=== PATIENT | female | born 1935 | race Caucasian/White ===

== ENCOUNTER 2018-05-16 11:09 | Emergency (ER) | payer MEDICARE, BC ==
[2018-05-16] MEDS: SODIUM CHLORIDE 0.9% FLUSH 10 ML SOL IV PRN (11:40)
[2018-05-16 11:49] LABS: BASOPHILS % (AUTO) 0 % (0-3); EOSINOPHILS % (AUTO) 0 % (0-9); HEMATOCRIT 37 % (35-47); HEMOGLOBIN 12.7 gm/dl (12.0-15.5); LYMPHOCYTES % (AUTO) 5.1 % (10-50); MEAN CORPUSCULAR HEMOGLOBIN 31.1 pg (27.0-32.0); MEAN CORPUSCULAR HGB CONC 34.3 gm/dl (32.0-36.0); MEAN CORPUSCULAR VOLUME 91 fL (81-99); MONOCYTES % (AUTO) 7.3 % (0-12); NEUTROPHILS % (AUTO) 87.2 % (37-80)
[2018-05-16 12:04] LABS: CARBON DIOXIDE 27.9 mEq/L (21-32); CREATININE 1.19 mg/dl (0.60-1.00); POTASSIUM 3.4 mMol/L (3.5-5.1)
[2018-05-16 12:58] VITALS: TEMP 98
[2018-05-16] MEDS: SODIUM CHLORIDE 0.9% 500 ML 500 ML IV ONE (13:04)
[2018-05-16 13:50] LABS: COLOR,URINE YELLOW
[2018-05-16 13:51] LABS: APPEARANCE,URINE CLOUDY; BILIRUBIN,URINE NEGATIVE (NEGATIVE); GLUCOSE, URINE (UA) NEGATIVE (NEGATIVE); KETONES,URINE NEGATIVE (NEGATIVE); LEUKOCYTE ESTERASE ,URINE TRACE (NEGATIVE); NITRATE,URINE NEGATIVE (NEGATIVE); OCCULT BLOOD,URINE 2+ (NEG-TRACE); UROBILINOGEN,URINE NORMAL (0.2-1.0 EU)
[2018-05-16 13:52] LABS: BACTERIA 3+ (< 1+); CRYSTALS NEGATIVE (0-3 AVE/HPF); WBC,URINE 30-35 (0-5AV/HPF)
[2018-05-16] MEDS ORDERED: CIPROFLOXACIN HCL 500 MG TAB PO ONE (13:53)
[2018-05-16] MEDS ORDERED: AMOXIL/CLAVULANATE 400/5 ML PDR PO ONE (14:52)
[2018-05-16 15:45] VITALS: BP 146/66; PULSE 93; RESP 22; O2SAT 97
== END 2018-05-16 15:25 | disposition home or self-care (01) | DRG 914 ==
LOC: ED 11:09
DX: T14.90XA Injury, unspecified, initial encounter (principal); N39.0 Urinary tract infection, site not specified; E87.1 Hypo-osmolality and hyponatremia; W19.XXXA Unspecified fall, initial encounter; R40.2362 Coma scale, best motor response, obeys commands, at arrival to emergency department; R40.2142 Coma scale, eyes open, spontaneous, at arrival to emergency department; R40.2252 Coma scale, best verbal response, oriented, at arrival to emergency department; R42 Dizziness and giddiness
CPT/HCPCS: 70450; 71045; 72125; 73521; 80048; 81001; 85025; 87077; 87088; 87186; 93005; 96365; 99284; 99285; L0130